=== PATIENT | female | born 2000 | race Hispanic/Latino ===

== ENCOUNTER 2022-03-21 23:44 | Emergency (ER) | payer OTHER ==
[~2022-03-21] VITALS: Ht 152.4 cm; Wt 108.9 kg
[2022-03-22] MEDS ORDERED: NAPROSYN500 MG PO (01:26)
[2022-03-22] MEDS ORDERED: IBUPROFEN 600 MG TAB PO STA (01:27)
[2022-03-22 01:40] VITALS: BP 140/94
[2022-03-22] MEDS ORDERED: IBUPROFEN 600 MG TAB ONE (01:41)
== END 2022-03-22 01:40 | disposition home or self-care (01) ==
LOC: FSED 03-22 01:25
DX: M25.572 Pain in left ankle and joints of left foot (principal); S96.812A Strain of other specified muscles and tendons at ankle and foot level, left foot, initial encounter; X50.1XXA Overexertion from prolonged static or awkward postures, initial encounter; Y93.01 Activity, walking, marching and hiking; Y92.89 Other specified places as the place of occurrence of the external cause; F17.210 Nicotine dependence, cigarettes, uncomplicated
CPT/HCPCS: 99283